=== PATIENT | male | born 1985 ===

== ENCOUNTER → 2017-11-01 | Outpatient (CLI) | payer OTHER ==
[~2017-11-01] MED LIST: AMOX1TAB12 PO; AMOX1TAB5; CATAFLAM50 MG; CIPRO500 MG PO; CLARITIN5 MG/5 ML PO; CONEX TABLET1 EACH PO; CORTISPORIN EAR10 M1 OT; DEMEBORO OT; DOLOGESIC CAPSU1 CAP PO; FLAGYL PO; FLONASE16 GM NS; GILTUSS TR TAB1 EACH PO; IMODIUM A-D2 MG PO; INTESTINEX1 CA1 PO; KETO10TA2 PO; LEVSIN/SL0.125 MG PO; MUCINEX22 ML NS; NON; ORPH100T PO; OSEL75CA PO; PEPCID20 MG PO; PRILOSEC20 MG PO; TOBREX5 ML OP; ZITHROMAX500 MG PO; ZYRTEC10 MG PO
== END | disposition home or self-care (01) ==
LOC: LAB 09:51
DX: R50.9 Fever, unspecified (principal)

== ENCOUNTER → 2017-11-01 | Outpatient (CLI) | payer OTHER | END | disposition home or self-care (01) | LOC: PPHC 08:20 | DX: B34.9 Viral infection, unspecified (principal) ==

== ENCOUNTER 2017-11-08 09:59 | Outpatient (CLI) | payer OTHER | END 2017-11-08 10:22 | disposition home or self-care (01) | LOC: LAB 09:59 | DX: E78.5 Hyperlipidemia, unspecified (principal); R42 Dizziness and giddiness ==

== ENCOUNTER → 2018-08-24 06:36 | Outpatient (CLI) | payer OTHER | END | disposition home or self-care (01) | LOC: LAB 06:36 | DX: Z13.1 Encounter for screening for diabetes mellitus (principal); Z11.3 Encounter for screening for infections with a predominantly sexual mode of transmission; E78.2 Mixed hyperlipidemia; E03.8 Other specified hypothyroidism; E55.9 Vitamin D deficiency, unspecified ==